=== PATIENT | male | born 2000 | race Caucasian/White ===

== ENCOUNTER 2023-10-14 14:23 | Emergency (ER) | payer OTHER ==
[~2023-10-14] VITALS: Ht 185.4 cm; Wt 93.0 kg
[2023-10-14 14:44] VITALS: BP 112/76; PULSE 82; RESP 16; TEMP 98.9; O2SAT 96
[2023-10-14] MEDS ORDERED: SULF1TAB48 MT (15:24)
[2023-10-14] MEDS ORDERED: CEPH500C2 MT (15:24)
[2023-10-14] MEDS ORDERED: HIBIL TP (15:24)
== END 2023-10-14 16:06 | disposition home or self-care (01) ==
LOC: ER 15:05
DX: L73.9 Follicular disorder, unspecified (principal); L02.415 Cutaneous abscess of right lower limb; J45.909 Unspecified asthma, uncomplicated; F20.9 Schizophrenia, unspecified
CPT/HCPCS: 99283

== ENCOUNTER 2023-10-14 19:26 | Emergency (ER) | payer OTHER ==
[~2023-10-14] VITALS: Ht 175.3 cm; Wt 82.0 kg
[~2023-10-14 19:26] MED LIST: CEPH500C2 MT; HIBIL TP; SULF1TAB48 MT
[2023-10-14 19:34] VITALS: RESP 16; O2SAT 98
[2023-10-14 21:35] LABS: BASOPHILS % 0.8 % (0.0-2.0); EOSINOPHILS % 0.8 % (0.0-5.0); HEMOGLOBIN. 14.3 g/dL (14.0-18.0); LYMPHOCYTES % 25.1 % (20.0-50.0); MEAN CORPUSCULAR HEMOGLOBIN 31.7 pg (28.0-32.0); MEAN CORPUSCULAR HGB CONC 33.2 g/dL (31.0-37.0); MEAN CORPUSCULAR VOLUME 95.7 fL (80.0-94.0); MEAN PLATELET VOLUME 7.9 fl (7.4-10.4); MONOCYTES % 8.5 % (2.0-8.0); NEUTROPHILS % 64.8 % (40.0-76.0); PLATELET 355 x1000/uL (130-400); RED CELL DISTRIBUTION WIDTH 14.5 % (11.6-14.6); WHITE BLOOD COUNT 12.1 x1000/uL (4.5-11.0)
[2023-10-14 21:49] LABS: ACETAMINOPHEN < 2 ug/mL (10-30); ALANINE AMINOTRANSFERASE 41 IU/L (10-49); ALBUMIN 4.3 g/dL (3.2-4.8); ASPARTATE AMINOTRANSFERASE 28 IU/L (<34); BILIRUBIN TOTAL 0.7 mg/dL (0.1-1.0); CALCIUM 9.3 mg/dL (8.7-10.4); CARBON DIOXIDE 26 mEq/L (21-32); CHLORIDE 105 mEq/L (98-107); CREATININE 0.9 mg/dL (0.6-1.3); GLUCOSE 118 mg/dL (70-105); POTASSIUM 3.8 mEq/L (3.5-5.1); PROTEIN TOTAL 7.8 g/dL (6.0-8.3); SODIUM 138 mEq/L (136-145); UREA NITROGEN BLOOD 10 mg/dL (9-23)
[2023-10-14 22:21] LABS: ETHANOL BLOOD < 10 mg/dL (<10)
[2023-10-15 08:58] VITALS: BP 139/86; PULSE 92; TEMP 98.5
== END 2023-10-15 12:40 | disposition home or self-care (01) ==
LOC: ER 19:26
DX: R45.851 Suicidal ideations (principal); F15.10 Other stimulant abuse, uncomplicated; F20.9 Schizophrenia, unspecified; J45.909 Unspecified asthma, uncomplicated
CPT/HCPCS: 36415; 80053; 80307; 80320; 80329; 85025; 99283; G0480

== ENCOUNTER 2023-11-04 21:45 | Emergency (ER) | payer OTHER ==
[~2023-11-04] VITALS: Ht 177.8 cm; Wt 74.0 kg
[2023-11-04 21:56] VITALS: O2SAT 99
[2023-11-04] MEDS: HALOPERIDOL LACTATE 5MG/ML VIAL IM ONE (23:23)
[2023-11-04] MEDS: LORAZEPAM 2MG/ML INJ IM ONE (23:23)
[2023-11-04] MEDS: DIPHENHYDRAMINE 50MG/ML VIAL IM ONE (23:23)
[2023-11-05 01:49] LABS: BASOPHILS % 0.8 % (0.0-2.0); EOSINOPHILS % 1.7 % (0.0-5.0); HEMATOCRIT. 39.9 % (42.0-52.0); HEMOGLOBIN. 13.2 g/dL (14.0-18.0); LYMPHOCYTES % 36.8 % (20.0-50.0); MEAN CORPUSCULAR HEMOGLOBIN 31.3 pg (28.0-32.0); MEAN CORPUSCULAR HGB CONC 33.2 g/dL (31.0-37.0); MEAN CORPUSCULAR VOLUME 94.4 fL (80.0-94.0); MEAN PLATELET VOLUME 7.3 fl (7.4-10.4); MONOCYTES % 11.1 % (2.0-8.0); NEUTROPHILS % 49.6 % (40.0-76.0); PLATELET 349 x1000/uL (130-400); RED BLOOD CELL COUNT 4.22 mill/uL (4.7-6.1); RED CELL DISTRIBUTION WIDTH 14.1 % (11.6-14.6); WHITE BLOOD COUNT 7.5 x1000/uL (4.5-11.0)
[2023-11-05 02:05] LABS: ACETAMINOPHEN < 2 ug/mL (10-30); ALANINE AMINOTRANSFERASE 38 IU/L (10-49); ALBUMIN 4.4 g/dL (3.2-4.8); ASPARTATE AMINOTRANSFERASE 23 IU/L (<34); BILIRUBIN TOTAL 1.4 mg/dL (0.1-1.0); CARBON DIOXIDE 26 mEq/L (21-32); CHLORIDE 107 mEq/L (98-107); CREATININE 0.8 mg/dL (0.6-1.3); GLUCOSE 107 mg/dL (70-105); POTASSIUM 3.1 mEq/L (3.5-5.1); PROTEIN TOTAL 7.4 g/dL (6.0-8.3); SODIUM 140 mEq/L (136-145); UREA NITROGEN BLOOD 7 mg/dL (9-23)
[2023-11-05 02:07] LABS: ETHANOL BLOOD < 10 mg/dL (<10)
[2023-11-05 08:27] VITALS: BP 136/78; PULSE 110; RESP 18; TEMP 98.6
[2023-11-05 11:21] LABS: CLARITY URINE CLOUDY (CLEAR); COLOR URINE DARK YELLOW (YELLOW); GLUCOSE URINE NEGATIVE (NEGATIVE); KETONES URINE NEGATIVE (NEGATIVE); LEUKOCYTE ESTERASE URINE NEGATIVE (NEGATIVE); NITRITE URINE NEGATIVE (NEGATIVE); OCCULT BLOOD URINE NEGATIVE (NEGATIVE); PH URINE 6.5 (4.5-8.0); PROTEIN URINE TRACE (NEGATIVE); SPECIFIC GRAVITY URINE 1.022 (1.005-1.030)
[2023-11-05 11:39] LABS: AMORPHOUS SEDIMENT URINE 2+ /lpf
[2023-11-05 11:40] LABS: MUCUS URINE 1+ /lpf (NONE/TRACE); SQUAMOUS EPITHELIAL CELL URINE RARE /lpf (RARE/1+)
[2023-11-05 11:41] LABS: RBC URINE 0-2 /hpf (0-2); WBC URINE 0-2 /hpf (0-2)
[2023-11-05 11:42] LABS: BACTERIA URINE 3+
[2023-11-05 12:03] LABS: *AMPHETAMINES SCREEN URINE PRESUMPTIVE POSITIVE (NEGATIVE); *BARBITURATES SCREEN URINE NEGATIVE (NEGATIVE); *BENZODIAZEPINES SCREEN URINE NEGATIVE (NEGATIVE); *COCAINE SCREEN URINE NEGATIVE (NEGATIVE); CANNABINOID URINE SCREEN PRESUMPTIVE POSITIVE (NEGATIVE); ECSTASY MDMA SCREEN URINE CONF.TEST INDICATED (NEGATIVE); METHADONE URINE SCREEN Neg (NEGATIVE); OPIATES URINE SCREEN NEGATIVE (NEGATIVE); PHENCYCLIDINE URINE SCREEN NEGATIVE (NEGATIVE)
== END 2023-11-05 12:49 | disposition home or self-care (01) ==
LOC: ER 21:45
DX: F20.9 Schizophrenia, unspecified (principal); F15.90 Other stimulant use, unspecified, uncomplicated; F19.90 Other psychoactive substance use, unspecified, uncomplicated
CPT/HCPCS: 36415; 96372; 99284; 80053; 80305; 81003; 80307; 80329; 80320; 85025; J1200; J1630; J2060; G0480

== ENCOUNTER 2023-11-27 19:10 | Emergency (ER) | payer OTHER ==
[~2023-11-27] VITALS: Ht 170.2 cm; Wt 80.0 kg
[2023-11-27] MEDS ORDERED: OLANZAPINE 5MG TABLET PO SCH (19:30)
[2023-11-27] MEDS ORDERED: LORAZEPAM 1MG TABLET PO ONE (19:30)
[2023-11-27] MEDS: HALOPERIDOL LACTATE 5MG/ML VIAL IM ONE (19:55)
[2023-11-27 19:56] VITALS: O2SAT 98
[2023-11-27] MEDS: MIDAZOLAM HCL 2 MG/2 ML VIAL IM ONE (19:56)
[2023-11-27] MEDS: DIPHENHYDRAMINE 50MG/ML VIAL IM PRN (19:56)
[2023-11-27 20:00] VITALS: TEMP 98
[2023-11-27 21:04] LABS: BASOPHILS % 0.6 % (0.0-2.0); EOSINOPHILS % 0.1 % (0.0-5.0); HEMATOCRIT. 41.4 % (42.0-52.0); HEMOGLOBIN. 14.2 g/dL (14.0-18.0); LYMPHOCYTES % 17.3 % (20.0-50.0); MEAN CORPUSCULAR HEMOGLOBIN 31.8 pg (28.0-32.0); MEAN CORPUSCULAR HGB CONC 34.3 g/dL (31.0-37.0); MEAN CORPUSCULAR VOLUME 92.7 fL (80.0-94.0); MEAN PLATELET VOLUME 7.7 fl (7.4-10.4); MONOCYTES % 11.4 % (2.0-8.0); NEUTROPHILS % 70.6 % (40.0-76.0); PLATELET 354 x1000/uL (130-400); RED BLOOD CELL COUNT 4.46 mill/uL (4.7-6.1); RED CELL DISTRIBUTION WIDTH 14.4 % (11.6-14.6); WHITE BLOOD COUNT 10.9 x1000/uL (4.5-11.0)
[2023-11-27 21:17] LABS: ACETAMINOPHEN < 2 ug/mL (10-30); ALANINE AMINOTRANSFERASE 59 IU/L (10-49); ALBUMIN 4.9 g/dL (3.2-4.8); ASPARTATE AMINOTRANSFERASE 49 IU/L (<34); BILIRUBIN TOTAL 1.3 mg/dL (0.1-1.0); CALCIUM 9.1 mg/dL (8.7-10.4); CARBON DIOXIDE 21 mEq/L (21-32); CHLORIDE 106 mEq/L (98-107); CREATININE 0.8 mg/dL (0.6-1.3); ETHANOL BLOOD < 10 mg/dL (<10); GLUCOSE 100 mg/dL (70-105); POTASSIUM 2.9 mEq/L (3.5-5.1); PROTEIN TOTAL 8.2 g/dL (6.0-8.3); SODIUM 137 mEq/L (136-145); UREA NITROGEN BLOOD 8 mg/dL (9-23)
[2023-11-28 01:21] VITALS: BP 111/74; PULSE 78; RESP 18
== END 2023-11-28 01:22 | disposition home or self-care (01) ==
LOC: ER 19:10
DX: R44.3 Hallucinations, unspecified (principal); T43.655A Adverse effect of methamphetamines, initial encounter; R45.1 Restlessness and agitation; Y92.89 Other specified places as the place of occurrence of the external cause
CPT/HCPCS: 80053; 80307; 80329; 80320; 85025; 36415; 96372; 99284; J1200; J1630; J2250; G0480

== ENCOUNTER 2024-06-27 02:55 | Emergency (ER) | payer OTHER ==
[~2024-06-27] VITALS: Ht 175.3 cm; Wt 90.0 kg
[2024-06-27 03:01] VITALS: BP 147/92; PULSE 98; RESP 18; TEMP 97.9; O2SAT 99
[2024-06-27] MEDS ORDERED: ONDA4TAB50 MT (03:05)
[2024-06-27] MEDS: ONDANSETRON 4MG ODT PO ONE (03:11)
== END 2024-06-27 03:12 | disposition home or self-care (01) ==
LOC: ER 02:55
DX: R11.0 Nausea (principal); F20.9 Schizophrenia, unspecified; F15.90 Other stimulant use, unspecified, uncomplicated
CPT/HCPCS: 99283; Q0162

== ENCOUNTER 2024-06-27 04:15 | Emergency (ER) | payer OTHER ==
[~2024-06-27] VITALS: Ht 175.3 cm; Wt 99.5 kg
[~2024-06-27 04:15] MED LIST changes: +ONDA4TAB50 MT
[2024-06-27 04:22] VITALS: BP 135/89; RESP 18; TEMP 98.2; O2SAT 99
[2024-06-27 04:29] VITALS: PULSE 77; O2SAT 97
== END 2024-06-27 08:00 | disposition left against medical advice (07) ==
LOC: ER 04:15
DX: F41.9 Anxiety disorder, unspecified (principal); Z53.21 Procedure and treatment not carried out due to patient leaving prior to being seen by health care provider